=== PATIENT | male | born 1990 | race Caucasian/White ===

== ENCOUNTER 2017-12-16 16:26 | Emergency (ER) | payer BC, OTHER ==
[~2017-12-16 16:26] MED LIST: DON PO; NO; PAN40 PO
[2017-12-16] MEDS ORDERED: fentaNYL CITR 100 MCG/2 ML AMP IVP ONE ×2 (16:40→18:05)
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
[2017-12-16] MEDS ORDERED: SERT25TA87 PO (17:29)
[2017-12-16] MEDS ORDERED: DIPHTH/TETANUS/ACEL. PERTUSSIS IM ONLY ONE (17:50)
[2017-12-16] MEDS ORDERED: IOPAMIDOL 76% 75 ML INFUS BTL 75 ML ONE (17:55)
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
[2017-12-16] MEDS ORDERED: HYDROmorphone* 1 MG/ML 1 MG/ML ML IVP ONE (19:50)
[2017-12-16] MEDS ORDERED: APAP/HYDROCODONE 325/5 TAB PO ONE (19:50)
[2017-12-16] MEDS ORDERED: ACET/HYDROC 5/325MG TH ER ONLY 2 TAB/BOTTLE PO ONE (20:35)
[2017-12-16] MEDS ORDERED: LOR5/325 PO (20:37)
[2017-12-16 20:44] VITALS: BP 138/88
== END 2017-12-16 20:48 | disposition home or self-care (01) ==
LOC: ER 16:36
DX: S42.022A Displaced fracture of shaft of left clavicle, initial encounter for closed fracture (principal); S22.42XA Multiple fractures of ribs, left side, initial encounter for closed fracture; S27.321A Contusion of lung, unilateral, initial encounter; V18.0XXA Pedal cycle driver injured in noncollision transport accident in nontraffic accident, initial encounter; Y93.55 Activity, bike riding
CPT/HCPCS: 71046; 71100; 71260; 72125; 73000; 73030; 74177; 90471; 90715; 96374; 96375; 96376; 99285; J1170; J3010; L0172; L3982; Q9967

== ENCOUNTER → 2018-10-16 | Outpatient (CLI) | payer OTHER ==
[~2018-10-16] MED LIST changes: +LOR5/325 PO; +SERT25TA87 PO
== END ==
LOC: LAB 13:30
PROVIDERS: ATTEND Nurse Practitioner
DX: R10.9 Unspecified abdominal pain (principal)
CPT/HCPCS: 36415; 82565

== ENCOUNTER → 2018-11-26 | Outpatient (CLI) | payer OTHER ==
--- NOTE | 2018-11-26 09:52 | RADIOLOGY IMAGING REPORT ---
FACILITY: [facility] [place] PATIENT NAME: Young Reyes : 1990 MR: [id number] V: [id number] EXAM DATE: ORDERING PHYSICIAN: ABIODUN LE TECHNOLOGIST: Location: [facility] Patient: Young Reyes : 1990 Visit/Account:[id number] Date of Sevice: 11/26/2018 GALLBLADDER HISTORY: Symptoms of kidney stones COMPARISON: CT December 16, 2017 FINDINGS: Gallbladder: Unremarkable; no stones or sludge. Liver: There is mild increased echogenicity throughout the liver which can be seen with fatty infiltr ation or other infiltrative process Common duct: Normal, four mm diameter. Pancreas: Partially obscured by bowel, visualized aspects unremarkable. Right kidney: No evidence of right hydronephrosis. The right kidney measures 11.2 cm in length Upper abdominal aorta and IVC: Patent. Ascites: None visualized. IMPRESSION: Mild increased echogenicity throughout the liver which can be seen with fatty infiltration or other i nfiltrative process No evidence of right hydronephrosis Report Dictated By: Leigh Ann Wen MD at 11/26/2018 9:41 AM Report E-Signed By: Leigh Ann Wen MD at 11/26/2018 9:44 AM WSN:[email or web address]
== END ==
LOC: US 00:51
PROVIDERS: ATTEND Family Medicine
DX: K76.0 Fatty (change of) liver, not elsewhere classified (principal)
CPT/HCPCS: 76705

== ENCOUNTER → 2018-12-10 | Outpatient (CLI) | payer OTHER ==
--- NOTE | 2018-12-10 12:33 | RADIOLOGY IMAGING REPORT ---
FACILITY: [facility] PATIENT NAME: Young Reyes : 1990 MR: [id number] V: [id number] EXAM DATE: [id number] ORDERING PHYSICIAN: ABIODUN LE TECHNOLOGIST: [place] [facility] [place] Reyes : 1990 Visit/Account:[id number] Date of Sevice: 12/10/2018 EXAMINATION: CT Abdomen and Pelvis Without Contrast 12/10/2018 11:00 AM HISTORY: Abdominal pain for 2 months TECHNIQUE: Spiral scan was through the abdomen and pelvis without contrast. One of the following dose optimization techniques was utilized in the performance of this exam: Autom ated exposure control; adjustment of the mA and/or kV according to the patient's size; or use of an i terative reconstruction technique. Specific details can be referenced in the facility's radiology C T exam operational policy. COMPARISON STUDIES: Abdominal ultrasound 11/26/2018. CT chest, abdomen, and pelvis 12/16/2017.. FINDINGS: Liver / biliary: negative Pancreas: negative Spleen: negative Adrenal glands: negative Kidneys / retroperitoneum: No perinephric stranding. No stone or obstruction. Pelvic structures: Negative. Bowel / peritoneum / mesenteries: No bowel distention or focal inflammation. Normal appendix. No si gnificant diverticular change. Fecal material in the colon without substantial retention. Vessels: Incidental retroaortic left renal vein. Musculoskeletal / Body wall: negative Lymph node assessment: negative Lower chest: negative IMPRESSION: Unremarkable CT of the abdomen and pelvis. No etiology for pain demonstrated. Report Dictated By: Tj Mccall MD at 12/10/2018 12:11 PM Report E-Signed By: Tj Mccall MD at 12/10/2018 12:27 PM WSN:[email or web address]
== END ==
LOC: CT 00:58
PROVIDERS: ATTEND Family Medicine
DX: R10.811 Right upper quadrant abdominal tenderness (principal)
CPT/HCPCS: 74176